=== PATIENT | female | born 1950 | race Caucasian/White ===

== ENCOUNTER 2024-04-15 10:20 | Day surgery (SDC) | payer MEDICARE, SELFPAY ==
[2024-04-13 11:09] VITALS: BMI 38.2
[2024-04-15 10:43] VITALS: BP 159/71; PULSE 83; RESP 18; TEMP 36.6; O2SAT 97
[2024-04-15] MEDS: LACTATED RINGERS 1000ML 1,000 ML 50 ML IV (10:52)
--- NOTE | 2024-04-15 11:01 | P.PNANES_ITS ---
[facility] Disclaimer: The information contained in this section may have been updated after the patient was seen, as this information can be updated by other users. Medical History Arthritis History of brain tumor Sleep apnea Hyperlipidemia Surgical History H/O: hysterectomy Hx of shoulder surgery H/O partial resection of colon Family History (Updated 04/15/24 @ 10:44 by Alyson Christianson RN) Mother Colon cancer Other Heart disease Social History (Updated 04/15/24 @ 10:44 by Alyson Christianson RN) Smoking Status: Never smoker alcohol intake: never substance use type: denies use current occupational status: employed Travel in the last 8 weeks: None caffeine: Yes [facility] Anesthesia Checklist Patient Identification Patient Identification: Arm Band and Family Structural Data Admitted From: Home Planned Operative Procedure/s: colonoscopy Consent for Planned Operative Procedure(s) Verified: Yes Verified Documents: Surgical Consent and History and Physical NPO Status Verified Time NPO: 00:00 Additional verifications Patient : No Anesthesia Reactions: No Hx Blood Transfusions: No Blood Transfusion Reaction: No Cephalosporin Allergy: No Previous Colonoscopy: Yes Airway Assessment Mallampati Score:: Class II C-Spine Mobility Assessed: Yes TMJ Mobility Assessed: Yes Neurological Assessment Level of Consciousness: Awake, Alert, Appropriate and Follows Commands Hx Seizures: No Numbness or tingling in extremities: No Anesthesia Plan Anesthesia Risk discussed: Yes ASA Class: II Anesthesia Type: MAC Preoperative Comments Pre-Operative Comments: History of massive brain surgery. Family history of colon cancer.
[2024-04-15 12:18] VITALS: O2SAT 100
--- NOTE | 2024-04-15 12:27 | EXP.HP ---
History of Present Illness *Admission Date: 04/15/24 *Reason for visit:: Personal history of colon cancer and family history of colon cancer *History of present illness: Mrs. Little is a 73-year-old female who is here for surveillance colonoscopy. The patient did have a malignant polyp/colon cancer 8 years ago and underwent colonic resection. Her last colonoscopy was 4 years ago and she had benign adenomatous polyps removed. Her mother had colon cancer at the age of 58. The examination is deemed medically necessary for surveillance colonoscopy. The patient has been seen, interviewed and examined prior to the procedure by both myself and the anesthesia provider. [facility] Disclaimer: The information contained in this section may have been updated after the patient was seen, as this information can be updated by other users. Medical History (Updated 04/15/24 @ 12:28 by Jose Blum II, MD) Arthritis History of brain tumor Sleep apnea Hyperlipidemia Surgical History H/O: hysterectomy Hx of shoulder surgery H/O partial resection of colon Family History (Updated 04/15/24 @ 10:44 by Alyson Christianson RN) Mother Colon cancer Other Heart disease Social History (Updated 04/15/24 @ 11:03 by Miguel Crisostomo CRNA) Smoking Status: Never smoker alcohol intake: never substance use type: denies use current occupational status: employed Travel in the last 8 weeks: None caffeine: Yes Have you lived/traveled outside [place] in past 30 days?: No Contact w/someone who lives/traveled outside [place] past 30 days?: No Exposure to someone with infectious disease in past 14 days?: No Do you have a fever (greater than 100.4 F or 38 C)?: No Have you tested positive for COVID-19: Yes Exposed to someone with COVID-19 in past 14 days?: No Do you have a sore throat?: No Do you have a cough?: No Do you have any weakness?: No Are you experiencing any nausea/vomitting?: No Do you have any diarrhea?: No Are you experiencing any unusual bleeding?: No Do you have any muscle aches/pain?: No Do you have any abdominal pain?: No Are you experiencing loss of taste or smell?: No Review of Systems Review of Systems Review of systems (narrative): Negative *Cardiovascular Comments: Negative *Gastrointestinal Comments: Negative *Genitourinary Comments: Negative *Musculoskeletal Comments: Negative *Neurologic Comments: Negative Meds Home Medications and Allergies Home Medications ?Medication ?Instructions ?Recorded ?Confirmed ?Type sodium,potassium,mag sulfates 17.5 See Rx Instructions PO .COMPLEX 04/05/24 Rx gram-3.13 gram-1.6 gram oral soln #354 mL (Suprep Bowel Prep Kit) calcium citrate 200 mg PO BID 04/15/24 04/15/24 History duloxetine 60 mg capsule,delayed 60 mg PO DAILY 04/15/24 04/15/24 History release sprinkle folic acid 1 mg tablet 1 mg PO DAILY 04/15/24 04/15/24 History gabapentin 600 mg tablet 600 mg PO BID 04/15/24 04/15/24 History glucosamine-chondroitin 250 mg-200 1 tab PO BID 04/15/24 04/15/24 History mg tablet (Osteo Bi-Flex) hydroxychloroquine 200 mg tablet 200 mg PO BID 04/15/24 04/15/24 History methotrexate sodium 2.5 mg tablet 2.5 mg PO WEEKLY 04/15/24 04/15/24 History erudextd-lsi-rugb-FA-Ca carb-vit K 1 tab PO DAILY 04/15/24 04/15/24 History 18 mg iron-400 mcg-500 mg tablet (Women's One Daily) pramipexole 1 mg tablet 1 mg PO DAILY 04/15/24 04/15/24 History pravastatin 40 mg tablet 40 mg PO DAILY 04/15/24 04/15/24 History turmeric 400 mg capsule 1,200 mg PO DAILY 04/15/24 04/15/24 History vitamins A,C,B-hhkd-qjxuzk 2,148 1 tab PO BID 04/15/24 04/15/24 History mcg-113 mg-45 mg-17.4 mg tablet (PreserVision AREDS) New Prescriptions to Start Prescriptions: Allergies Allergy/AdvReac Type Severity Reaction Status Date / Time No Known Allergies Allergy Verified 04/13/24 11:07 Exam Data for Last 24 hours Vital signs and Labs for Last 24 Hours: Temp Pulse Resp BP Pulse Ox O2 Del Method O2 Flow Rate 97.8 F 83 18 159/71 H 97 Nasal Cannula 5 04/15/24 10:43 04/15/24 10:43 04/15/24 10:43 04/15/24 10:43 04/15/24 10:43 04/15/24 12:18 04/15/24 12:18 I & O for Last 24 hours: Intake & Output 04/12/24 04/13/24 04/14/24 04/15/24 23:59 23:59 23:59 23:59 Weight 230 lb *Routine HEENT Exam Head: Present normocephalic Eye: Present EOMI and PERRL ENT: Present mucous membranes moist *Routine Neck Exam Neck: Present supple *Routine Respiratory Exam Respiratory: Present CTA bilaterally *Routine Cardiovascular Exam Cardiovascular: Present RRR *Routine Abdominal Exam Abdominal: Present soft and normoactive bowel sounds; Absent tenderness *Routine Rectal Exam Rectal:: deferred *Routine Genitalia Exam Genitalia:: deferred *Routine Extremities Exam Extremities: Absent cyanosis, clubbing or edema *Routine Skin Exam Skin: Present warm; Absent rash *Routine Neurological Exam Neurological: Present alert and oriented X3 Assessment and Plan *Assessment and plan (1) Personal history of colon cancer, stage I: Status: Acute Category: Medical Code(s): Z85.038 - Personal history of other malignant neoplasm of large intestine (2) Family history of colon cancer: Status: Acute Category: Medical Code(s): Z80.0 - Family history of malignant neoplasm of digestive organs (3) Personal history of adenomatous and serrated colon polyps: Status: Acute Category: Medical Code(s): Z86.0101 - Personal history of adenomatous and serrated colon polyps Plan A/P: 1. Personal history of colon cancer (malignant polyp) with personal history of adenomatous polyps and family history is the preprocedural diagnosis. The patient will be anesthetized/sedated using MAC sedation. The patient has been seen and examined. Cardiac and lung assessment prior to the examination is stable. Proceed with planned surveillance colonoscopy
--- NOTE | 2024-04-15 12:29 | HMH.PROCNOTE ---
[facility] Procedure Note Date: 04/15/24 Time: 12:39 Procedure Note:: Colonoscopy Procedure Report: Colonoscopy Endoscopist: Jose Blum II, MD Referring physician: Mulugeta Crespo MD Date of Procedure: April 15, 2024 Equipment: Olympus 190 variable stiffness pediatric colonoscope Sedation: MAC sedation Indication: Mrs. Little is a 73-year-old female who is here for follow-up surveillance colonoscopy. The patient did have a cancerous polyp/colon cancer in the right colon discovered 8 years ago and she had right hemicolectomy. Her mother had colon cancer at the age of 58. Her last colonoscopy was 4 years ago and she states polyps were removed. The patient reports no abdominal pain, weight loss, change in her bowel habits or rectal bleeding. Procedure: Prior to the procedure, a history and physical exam was performed, and patient's medications and allergies were reviewed. The risks, benefits and alternatives of the sedation and procedure were discussed with the patient. All questions were answered and informed consent was obtained. The patient was brought to the procedure room. Patient identification and proposed procedure were verified by the physician and the nurse. The patient was placed in a left lateral decubitus position and the scope was passed under direct vision. Throughout the procedure, the patient's blood pressure, pulse, and oxygen saturations were monitored continuously. The colonoscopy was accomplished without difficulty. The patient tolerated the procedure well. Findings: On digital rectal examination there was normal rectal tone. There were no external hemorrhoids. The colonoscope was introduced through the anal canal to the rectum and advanced to the ileocolonic anastomosis. The anastomosis was widely patent with normal anastomotic line (end-to-side anastomosis). The scope was advanced a short distance into the terminal ileum which appeared normal. The scope was then withdrawn. The remaining ascending and transverse colon and mucosa were grossly normal. There were scattered diverticuli throughout the descending and sigmoid colon (LEFT colon). The rectum itself was normal. Upon retroflexion within the rectum there were grade 1-2 internal hemorrhoids. The preparation was excellent throughout with Altair Preparation Score of 9. The cecal time was 10 minutes. Impression: 1. Left-sided diverticulosis 2. Prior right hemicolectomy with normal ileocolonic anastomosis (end-to-side) 3. Grade 1-2 internal hemorrhoids Plan: I will discuss the findings with the patient and family. I would recommend repeat surveillance colonoscopy again in 3 to 5 years based upon her family history and prior history of colon cancer/malignant polyp. I would encourage psyllium fiber supplementation on a maintenance basis.
[2024-04-15 12:45] VITALS: BP 119/70; PULSE 83; RESP 16; TEMP 36.6; O2SAT 97
[2024-04-15 12:55] VITALS: BP 151/77; PULSE 83; RESP 16; O2SAT 96
[2024-04-15 13:05] VITALS: BP 164/90; PULSE 81; RESP 16; O2SAT 97
[2024-04-15 13:14] VITALS: BP 155/84; PULSE 80; RESP 16; O2SAT 97
== END 2024-04-15 13:15 | disposition home or self-care (01) ==
PROVIDERS: PCP Internal Medicine; Visit Provider Internal Medicine Gastroenterology
PROC: (CPT 45378; principal; 2024-04-15 12:00)
DX: K57.30 Diverticulosis of large intestine without perforation or abscess without bleeding (principal); K64.8 Other hemorrhoids; Z85.038 Personal history of other malignant neoplasm of large intestine; Z80.0 Family history of malignant neoplasm of digestive organs; Z86.0101 Personal history of adenomatous and serrated colon polyps; Z98.890 Other specified postprocedural states
CPT/HCPCS: 45378; J7120